=== PATIENT | female | born 1985 | race Caucasian/White ===

== ENCOUNTER 2017-02-05 10:59 | Inpatient (IN) ==
[2017-02-05] MEDS ORDERED: MAG-AL + SIM ORAL LIQUID 30ml PO PRN (12:39)
[2017-02-05] MEDS ORDERED: CARBOPROST 250 MCG/ML INJECTION IM PRN (12:39)
[2017-02-05] MEDS ORDERED: CALCIUM CARBONATE Chewable 500mg TABLET PO PRN (12:39)
[2017-02-05] MEDS ORDERED: METHYLERGONOVINE 0.2 MG/ML INJECTION IM PRN (12:39)
[2017-02-05] MEDS ORDERED: LIDOCAINE 1% (10mg/ml) 2mL INJ PF SDV ID PRN (12:39)
[2017-02-05] MEDS: LR 1,000 ML IV PRN ×2 (13:32→21:49)
[2017-02-05] MEDS ORDERED: OXYTOCIN DRIP 30 UNIT/500 ML ML IV PRN (13:56)
[2017-02-05] MEDS: D5LR 1,000 ML IV PRN ×2 (14:17→23:29)
--- NOTE | 2017-02-05 15:59 | Anesthesia Preoperative Report ---
Anesthesia Epidural/Spinal Rec - Date and Time Date: 02/05/17 Procedure: Labor Epidural Plan: Epidural - Vital Signs Vital Signs: Temperature 98.6 F 02/05/17 11:50 Pulse Rate 79 02/05/17 11:50 Respiratory Rate 20 02/05/17 11:50 Blood Pressure 150/91 H 02/05/17 11:50 Oxygen Delivery Method Room Air NPO since: 929 /Para: P:0 Heart Rate: 140 - Medictaions & Allergies Inpatient Medications: Current Medications Acetaminophen (Tylenol) 500 - 1,000 mg PO Q4H PRN PRN Reason: Pain Al Hydroxide/Mg Hydroxide (Maalox Plus) 30 ml PO Q3H PRN PRN Reason: Indigestion Calcium Carbonate (Tums) 500 - 1,000 mg PO Q2H PRN PRN Reason: Indigestion Carboprost Tromethamine (Hemabate) 250 mcg IM O PRN PRN Reason: .Downtime Lactated Ringer's (Lactated Ringers) 1,000 mls @ 1,000 mls/hr IV .Q1H PRN PRN Reason: as directed Last Admin: 02/05/17 13:32 Dose: 1,000 mls/hr Oxytocin (Pitocin Drip) 30 unit in 500 mls @ 2 mls/hr IV .Q24H PRN; Protocol PRN Reason: Induction/Augmentation Last Admin: 02/05/17 14:16 Dose: 2 mls/hr Dextrose/Lactated Ringer's (Dextrose 5%-Lactated Ringers) 1,000 mls @ 125 mls/ hr IV .Q8H PRN PRN Reason: Labor Last Admin: 02/05/17 14:17 Dose: 125 mls/hr Lidocaine HCl (Xylocaine-Mpf 1% Vial) 0.2 mg ID O PRN PRN Reason: IV Start Methylergonovine Maleate (Methergine) 0.2 mg IM O PRN Misoprostol (Cytotec) 800 mcg HI ONCE PRN Allergies/Adverse Reactions: Allergies Allergy/AdvReac Type Severity Reaction Status Date / Time Sulfa (Sulfonamide Allergy Mild Hives Verified 01/21/17 10:30 Antibiotics) - Home Medications Home Medications: Home Medications Medication Instructions Recorded Confirmed Type Ascorbate Calcium [Vitamin C] 500 mg PO DAILY 02/05/17 02/05/17 History Famotidine [Pepcid AC] 10 mg PO DAILY 02/05/17 02/05/17 History Fish Oil/Dha/Epa [Fish Oil 1,200 1 each PO DAILY 02/05/17 02/05/17 History mg Fish Oil] Folic Acid 0.4 mg PO DAILY 02/05/17 02/05/17 History Multivit,Calc,Mins/Iron/Folic 1 each PO DAILY 02/05/17 02/05/17 History [Women's Daily Caplet] - Medical History Cardiovascular: Reports: Heart Murmur (history, asymptomatic) Gastrointestional: Reports: Gastroesophageal Reflux Disease, Morbid Obesity ( obese) - Surgical History Anesthesia Reactions: None Hx Family Anesthesia Reaction: No History of Motion Sickness: No - Social History Smoking Status: Never smoker Second Hand Exposure: No Substance Use Type: does not use Alcohol Intake Frequency: does not drink Hx Chewing Tobacco Use: No - Pertinent Findings Lab Data: CBC and BMP 02/05/17 11:44 02/05/17 11:44 BMP 02/05/17 11:44 Sodium 136 Potassium 4.0 Chloride 107 Carbon Dioxide 22 BUN 9.0 Creatinine 0.6 L Glucose 95 Calcium 9.6 Liver Function 02/05/17 Range/Units 11:44 Total Bilirubin 0.50 (0.20-1.30) MG/DL AST 21 (14-36) U/L ALT 27 (9-52) U/L Alkaline Phosphatase 137 H (38-126) U/L Albumin 3.9 (3.5-5.0) G/DL - Physical Exam Respiratory Exam: lungs clear, bilateral breath sounds equal Cardiovascular Exam: regular rate and rhythm - Airway Assessment Mallampati Score: II TMD: 3 Fingerbreadths Neck Extension: good - ASA ASA Score: 3 - Discussion Discussion: Discussed risks/options/alternatives of anesthesia and questions answered. Patient consents. Nursing pain assessment noted. Anesthesia Discussion: spouse Attestation Statement: Prior to the delivery of any anesthetic medication, I examined the patient, developed the plan, obtained the patient's consent and discussed the risk and benefits of the procedure with the patient/guardian.
[2017-02-05] MEDS ORDERED: NALOXONE 0.4 MG/ML INJECTION IVP PRN (16:00)
[2017-02-05] MEDS ORDERED: ROPIVACAINE 1% 10MG/ML INJ 200 MG, SUFentanil 50 MCG in NS 100 ML EPI PRN (16:00)
[2017-02-05] MEDS ORDERED: ONDANSETRON 4 MG/2 ML INJECTION IVP PRN (16:00)
[2017-02-05] MEDS ORDERED: DiphenhydrAMINE 50 MG/ML INJECTION IVP PRN (16:00)
[2017-02-05 16:07] VITALS: BMI 32.4
[2017-02-06] MEDS ORDERED: AMPICILLIN 2 GM in NS 100 ML IV ONE (02:51)
[2017-02-06] MEDS: LR 1,000 ML IV PRN (03:25)
[2017-02-06] MEDS ORDERED: GENTAMICIN 120 MG in NS 100 ML IV ONE (03:30)
[2017-02-06] MEDS ORDERED: HYDROCORTISONE 2.5% CREAM 30gm RECTALLY PRN (06:15)
[2017-02-06] MEDS ORDERED: OXYTOCIN DRIP 30 UNIT/500 ML ML IV SCH (06:15)
[2017-02-06] MEDS ORDERED: SALINE FLUSH 10ml SYRINGE IVF PRN (06:15)
[2017-02-06] MEDS ORDERED: DiphenhydrAMINE 25 MG CAPSULE PO PRN (06:15)
[2017-02-06] MEDS ORDERED: HYDROCODONE/APAP 5mg/325mg TABLET PO PRN (06:15)
[2017-02-06] MEDS: IBUPROFEN 800 MG TABLET PO PRN ×3 (06:17→23:02)
--- NOTE | 2017-02-06 07:06 | Anesthesia Postoperative Note ---
- Date and Time Date: 02/06/17 Time: 07:00 - Status Patient Participated in Evaluation: Patient Participated in Person Vital Signs: Temperature 98.6 F 02/05/17 11:50 Pulse Rate 79 02/05/17 11:50 Respiratory Rate 20 02/05/17 11:50 Blood Pressure 150/91 H 02/05/17 11:50 Oxygen Delivery Method Room Air Respiratory Function: Airway Patent, Regular Respirations Cardiovascular Function: Regular Pulse Mental Status: Alert and Oriented Pain Intensity: 0 Hydration: Taking PO Fluids Complications During Recover: None Apparent Post Anesthesia Care Notes: moves bilateral lower extremeties. - Follow-Up Instructions Instructions: Per Surgeon
[2017-02-06] MEDS ORDERED: AMPICILLIN 1 GM in NS 100 ML IV SCH (09:00)
[2017-02-06] MEDS: DOCUSATE CALCIUM 240 MG CAPSULE PO SCH (14:32)
[2017-02-06] MEDS: ACETAMINOPHEN 500 MG TABLET PO PRN (19:18)
[2017-02-07] MEDS: IBUPROFEN 800 MG TABLET PO PRN ×3 (06:36→22:04)
[2017-02-07] MEDS: ACETAMINOPHEN 500 MG TABLET PO PRN ×2 (10:37→18:20)
--- NOTE | 2017-02-07 12:20 | OB/GYN Progress Note ---
OB-PP Progress Note - General PPD1 Maternal Group B Strep: Negative Maternal blood type: O+ Maternal Rubella Status: Immune - Subjective Date: 02/07/17 Lochia: Minimal Pain: contolled Voiding: voiding - Objective Vital Signs: Last Vital Signs Temp 97.7 F 02/07/17 06:45 Pulse 82 02/07/17 06:45 Resp 18 02/07/17 06:45 BP 129/83 02/07/17 06:45 Pulse Ox 95 02/07/17 00:00 Urine Output: good General: alert and oriented Abdomen: fundus firm, non-tender Extremities: non-tender - Assessment (1) (spontaneous vaginal delivery) Status: Acute - Plan Plan: routine care Expected date of discharge: 02/08/17
[2017-02-07] MEDS: DOCUSATE CALCIUM 240 MG CAPSULE PO SCH (14:37)
--- NOTE | 2017-02-07 20:52 | Labor and Delivery Note ---
DATE OF DELIVERY 02/06/2017 DELIVERY SUMMARY Milady is a 31-year-old, 1 at 40 weeks gestational age who presented to the clinic the day prior for a routine OB check. Her blood pressures were elevated in the mild range. She also reported some spotting and mild contractions. She was sent over to the hospital for further blood pressure evaluation. Her labs were all normal, but her blood pressures continued to be elevated in the mild range so she was admitted and started on Pitocin. Her membranes were ruptured artificially returning clear fluids. She received an epidural. She progressed steadily throughout labor. Just prior to pushing, she had an elevated temperature so she was started on ampicillin and gentamicin. She pushed for approximately an hour and had a spontaneous vaginal delivery of a viable male infant. Apgars 7/9. Weight 2776 grams. Name: "Duong." The baby was vigorous at delivery so he was placed on mom's abdomen and the cord clamping was delayed for more than two minutes. The placenta delivered spontaneously. She had a first-degree perineal laceration and a small right vaginal laceration that were both repaired with 2-0 Vicryl. She had a left periurethral laceration that was not bleeding, so it was left alone. During pushing it did not feel to me like she had a fever, and her temperature was normal after delivery so the antibiotics were not continued. ZHANG
[2017-02-08] MEDS: ACETAMINOPHEN 500 MG TABLET PO PRN (03:59)
[2017-02-08 04:30] VITALS: O2SAT 99
--- NOTE | 2017-02-08 08:03 | Discharge Instructions ---
Discharge Plan - Med Rec/Dispo Prescriptions: New Docusate Calcium [Surfak] 240 mg PO DAILY #30 capsule Hydrocodone/APAP 5/325 [[place] 5/325] 1 - 2 tab PO Q4H PRN #30 tablet PRN Reason: Pain Ibuprofen [Motrin] 800 mg PO Q8H PRN #30 tablet PRN Reason: Pain No Action Folic Acid 0.4 mg PO DAILY Famotidine [Pepcid AC] 10 mg PO DAILY Ascorbate Calcium [Vitamin C] 500 mg PO DAILY Fish Oil/Dha/Epa [Fish Oil 1,200 mg Fish Oil] 1 each PO DAILY Multivit,Calc,Mins/Iron/Folic [Women's Daily Caplet] 1 each PO DAILY
[2017-02-08] MEDS: IBUPROFEN 800 MG TABLET PO PRN (08:26)
[2017-02-08] MEDS: DOCUSATE CALCIUM 240 MG CAPSULE PO SCH (08:27)
[2017-02-08 10:56] VITALS: BP 156/92; PULSE 62; RESP 20; TEMP 97.8
== END 2017-02-08 12:25 | disposition home or self-care (01) | DRG 775 ==
LOC: OBOBS 10:59 → MC 11:02
PROVIDERS: ADMIT Obstetrics & Gynecology; ATTEND Obstetrics & Gynecology